=== PATIENT | male | born 1980 | race Caucasian/White ===

== ENCOUNTER 2020-05-04 11:10 | Observation (INO) | payer SELFPAY ==
[~2020-05-04 11:10] MED LIST: CEPH250T PO; KETO5DRO OP; PSEU120T50 PO; TOBR5DRO12 OP
[2020-05-04] MEDS ORDERED: NS IV 1000 ML 1,000 ML IV SCH (11:16)
[2020-05-04] MEDS ORDERED: ACETAMINOPHEN 325 MG TABLET PO PRN (11:30)
[2020-05-04] MEDS ORDERED: ANTACID SUSP 30 ML UDC (MYLANTA) PO PRN (11:30)
[2020-05-04] MEDS ORDERED: BISACODYL 10 MG SUPP (DULCOLAX) PR PRN (11:30)
[2020-05-04] MEDS ORDERED: ONDANSETRON 4 MG/2 ML (SDV) Z0FRAN IV PRN (11:30)
[2020-05-04] MEDS ORDERED: MILK OF MAGNESIA 400 MG/5 ML 30 ML UDC PO PRN (11:30)
[2020-05-04] MEDS ORDERED: MELATONIN 3 MG TABLET PO PRN (11:30)
[2020-05-04] MEDS ORDERED: polyethylene glycoL POWDER 17 GM (MIRALAX) PACK PO PRN (11:30)
[2020-05-04] MEDS ORDERED: CATHETER FLUSH 10 ML SYR IV PRN (12:45)
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
[2020-05-04 13:19] LABS: HEMOGLOBIN 14.2 g/dL (13.3-17.7); MEAN PLATELET VOLUME 10.7 fL (9.0-12.2); WHITE BLOOD COUNT 12.5 10^3/uL (4.3-11.0)
--- NOTE | 2020-05-04 13:25 | NUR ---
Patient personal financial representative light and stated he "has to leave" due to the news of his brother's . Dr. Mccoy and Dr. Monroe notified
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
--- NOTE | 2020-05-04 13:48 | Clinic Account Progress/Dx ---
Clinic Account Progress/Dx DIAGNOSIS: Date Seen by Provider: May 04, 2020 Time Seen by Provider: 13:00 Sinus bradycardia Gastroenteritis Peptic ulcer disease Tobaccoism RADHA TSANG MD May 04, 2020 1:48 pm
--- NOTE | 2020-05-04 17:12 | History & Physical-Hospitalist ---
History of Present Illness HPI/Chief Complaint Left ama before seen Source: RN/MD Exam Limitations: other (left AMA) Date Seen 05/04/20 Time Seen by a Provider: 13:00 Attending Physician [facility]ay [facility]cas[facility] Referring Physician Date of Admission May 04, 2020 at 12:32 Home Medications & Allergies Home Medications Reviewed patient Home Medication Reconciliation performed by pharmacy medication reconciliations device repair technician and/or nursing. Patients Allergies have been reviewed. Allergies Allergies Coded Allergies No Known Drug Allergies (Ftrfivgihm58/14/14) Past Qvdtuky-Nqerel-Cqrbsn Hx Past Med/Social Hx: Reviewed Nursing Past Med/Soc Hx, Reviewed and Corrections made Patient Social History Alcohol Use: Denies Use Recreational Drug Use: Yes Drug of Choice: THC, methamphetamine Smoking Status: Current Everyday Smoker Physical Abuse Screen: No Sexual Abuse: No Recent Foreign Travel: No Recent Hopitalizations: No Immunizations Up To Date Pediatric: No Seasonal Allergies Seasonal Allergies: No Past Medical History Gastrointestinal: Ulcer History of Blood Disorders: No Adverse Reaction to Blood Fiore: No Review of Systems Constitutional: see HPI Physical Exam Physical Exam Vital Signs Vital Signs - First Documented 05/04/20 05/04/20 12:36 12:55 Temp 36.5 O2 Delivery Room Air Capillary Refill : Height, Weight, BMI Height: 6'2" Weight: 214lbs. oz. 97.942524uu; BMI Method:Stated General Appearance: Other (Left ama before seen) Results Results/Procedures Labs Laboratory Tests 05/04/20 13:10 Patient resulted labs reviewed. Assessment/Plan Admission Diagnosis Left ama before seen Admission Status: Observation Clinical Quality Measures DVT/VTE Risk/Contraindication: Risk Factor Score Per Nursin RFS Level Per Nursing on Admit: 1=Low/No VTE PPX FLAKITA COONEY DO May 04, 2020 17:12
== END 2020-05-04 13:25 | disposition left against medical advice (07) ==
LOC: ICU 12:32 → UNDOADMIN 12:32 → ICU 12:36 → UNDODISIN 13:25 → EDSTATUS 14:41
PROVIDERS: ADMIT Family Medicine; ATTEND Family Medicine
DX: R00.1 Bradycardia, unspecified (principal); K52.9 Noninfective gastroenteritis and colitis, unspecified; K27.9 Peptic ulcer, site unspecified, unspecified as acute or chronic, without hemorrhage or perforation; F17.210 Nicotine dependence, cigarettes, uncomplicated
CPT/HCPCS: 36415; 85027

== ENCOUNTER 2022-12-29 13:47 | Observation (INO) | payer SELFPAY ==
[~2022-12-29] VITALS: Ht 187.9 cm; Wt 86.0 kg
--- NOTE | 2022-12-29 14:07 | ED GI ---
General Chief Complaint: Abdominal/GI Problems Stated Complaint: VOMITING BLOOD | Nursing Triage Note: ARRIVED VIA WC. STATES HE STARTED VOMITING YESTERDAY AND VOMITING BLOOD TODAY. TECH REPORTS A BUCKET IN CAR WITH APPX 400CC BLOOD IN IT. PT COMPLAINS OF ABD PAIN. ALSO STATES HE SMOKES POT AND ICE. Source of Information: Patient History of Present Illness Date Seen by Provider: Dec 29, 2022 Time Seen by Provider: 13:55 Initial Comments Patient is a 42-year-old male who presents to the emergency department with a chief complaint of vomiting blood for the last 12 to 18 hours. Patient states that he has a history of 2 prior episodes in the past that are similar. He states one episode 9 years ago and once in 2019. He states he has had colonoscopy (no upper endo). He does state he has a stomach ulcer however. He is supposed to be on a medication that he takes 30 minutes before eating as well as the nausea and an acid pill but has not been taking them. He does chew Tums and take Pepto every day. He denies any blood in his stool recently. He states the vomiting started last night the blood started sometime early this morning. Judy, the nutrition tech said that there was a bucket in the car when they removed him from the vehicle that contained approximately 400 cc of dark blackish blood. Patient denies daily alcohol use. He does smoke marijuana "when he has it". He is a cigarette smoker. No prior surgeries. No allergies to medications. He is lactose intolerant. He has upper abdominal discomfort currently with nausea. Timing/Duration: 12-24 Hours Severity/Quality: Severe, Cramping Location: Epigastric Radiation: No Radiation Activities at Onset: None Associated Symptoms: Nausea/Vomiting, Weakness Allergies and Home Medications Allergies Coded Allergies: No Known Drug Allergies (Unverified , 07/08/14) Patient Home Medication List Home Medication List Reviewed: Yes Cephalexin Monohydrate (Cephalexin) 250 Mg Tablet, 2 EACH PO Q8HR Prescribed by: DWAYNE ABBOTT on 07/08/14 1438 Ketorolac Tromethamine (Acular) 10 Ml Drops, 1 DROPS OP BID Prescribed by: DWAYNE ABBOTT on 07/08/14 1438 Pseudoephedrine Sulfate (12 Hour Cold Relief) 120 Mg Tablet.sa, 1 EA PO BID PRN Prescribed by: DWAYNE ABBOTT on 07/08/14 1438 Tobramycin Sulfate/Dexameth (Tobramycin-Dexameth Opth Susp) 5 Ml Drops.susp, 5 ML OP BID, (Reported) Entered as Reported by: RAMU DESOUZA on 07/08/14 1435 Review of Systems Review of Systems Constitutional: see HPI, malaise, weakness EENTM: No Symptoms Reported Respiratory: No Symptoms Reported Cardiovascular: No Symptoms Reported Gastrointestinal: Abdominal Pain, Nausea, Vomiting Genitourinary: No Symptoms Reported Musculoskeletal: no symptoms reported Skin: no symptoms reported All Other Systems Reviewed Negative Unless Noted: Yes Past Xoxlvvw-Nnbslq-Zdyunv Hx Patient Social History Tobacco Use?: Yes Substance use?: Yes Substance type: Marijuana Additional substance use comme: ICE Alcohol Use?: Yes Alcohol Frequency: Once in a while Immunizations Up To Date PED Vaccines UTD: No Seasonal Allergies Seasonal Allergies: No Past Medical History Surgeries: No Respiratory: No Cardiac: No Neurological: No Genitourinary: No Gastrointestinal: Yes Ulcer Musculoskeletal: No Endocrine: No HEENT: No Cancer: No Psychosocial: No Integumentary: No Blood Disorders: No Adverse Reaction/Blood Tranf: No Physical Exam Vital Signs Vital Signs - First Documented 12/29/22 13:50 Temp 36.1 Pulse 46 Resp 16 B/P (MAP) 146/89 (108) Pulse Ox 100 O2 Delivery Room Air Capillary Refill : Less Than 3 Seconds Height/Weight/BMI Height: 6'2" Weight: 214lbs. oz. 97.169256kl; 24.00 BMI Method:Stated General Appearance: WD/WN, no apparent distress HEENT: PERRL/EOMI, other (Very dry oral mucosa with blackish red material on the tongue) Neck: supple Respiratory: lungs clear, normal breath sounds, no respiratory distress, no acc essory muscle use Cardiovascular: bradycardia (50's) Gastrointestinal: soft, abnormal bowel sounds (Hypoactive bowel sounds); No distended, No guarding, No rebound; tenderness (Minimal epigastric tenderness) Extremities: normal range of motion, normal inspection, no pedal edema Skin: normal color, warm/dry Progress/Results/Core Measures Results/Orders Lab Results Laboratory Tests Test 12/29/22 13:54 12/29/22 15:07 Range/Units White Blood Count 12.8 H 4.3-11.0 10^3/uL Red Blood Count 5.18 4.30-5.52 10^6/uL Hemoglobin 15.0 13.3-17.7 g/dL Hematocrit 43 40-54 % Mean Corpuscular Volume 83 80-99 fL Mean Corpuscular Hemoglobin 29 25-34 pg Mean Corpuscular Hemoglobin Concent 35 32-36 g/dL Red Cell Distribution Width 13.6 10.0-14.5 % Platelet Count 297 130-400 10^3/uL Mean Platelet Volume 10.5 9.0-12.2 fL Immature Granulocyte % (Auto) 0 % Neutrophils (%) (Auto) 77 H 42-75 % Lymphocytes (%) (Auto) 18 12-44 % Monocytes (%) (Auto) 5 0-12 % Eosinophils (%) (Auto) 0 0-10 % Basophils (%) (Auto) 0 0-10 % Neutrophils # (Auto) 9.9 H 1.8-7.8 10^3/uL Lymphocytes # (Auto) 2.2 1.0-4.0 10^3/uL Monocytes # (Auto) 0.6 0.0-1.0 10^3/uL Eosinophils # (Auto) 0.0 0.0-0.3 10^3/uL Basophils # (Auto) 0.0 0.0-0.1 10^3/uL Immature Granulocyte # (Auto) 0.0 0.0-0.1 10^3/uL Prothrombin Time 13.3 12.2-14.7 SEC INR Comment 1.0 0.8-1.4 Activated Partial Thromboplast Time 24 24-35 SEC Sodium Level 137 135-145 MMOL/L Potassium Level 3.7 3.6-5.0 MMOL/L Chloride Level 103 98-107 MMOL/L Carbon Dioxide Level 22 21-32 MMOL/L Anion Gap 12 5-14 MMOL/L Blood Urea Nitrogen 15 7-18 MG/DL Creatinine 0.87 0.60-1.30 MG/DL Estimat Glomerular Filtration Rate 110 BUN/Creatinine Ratio 17 Glucose Level 133 H 70-105 MG/DL Calcium Level 9.5 8.5-10.1 MG/DL Corrected Calcium 9.3 8.5-10.1 MG/DL Total Bilirubin 0.8 0.1-1.0 MG/DL Aspartate Amino Transf (AST/SGOT) 25 5-34 U/L Alanine Aminotransferase (ALT/SGPT) 33 0-55 U/L Alkaline Phosphatase 52 40-136 U/L Total Protein 7.4 6.4-8.2 GM/DL Albumin 4.3 3.2-4.5 GM/DL Serum Alcohol < 10 <10 MG/DL Urine Opiates Screen NEGATIVE NEGATIVE Urine Oxycodone Screen NEGATIVE NEGATIVE Urine Methadone Screen NEGATIVE NEGATIVE Urine Propoxyphene Screen NEGATIVE NEGATIVE Urine Barbiturates Screen POSITIVE H NEGATIVE Ur Tricyclic Antidepressants Screen NEGATIVE NEGATIVE Urine Phencyclidine Screen NEGATIVE NEGATIVE Urine Amphetamines Screen NEGATIVE NEGATIVE Urine Methamphetamines Screen NEGATIVE NEGATIVE Urine Benzodiazepines Screen NEGATIVE NEGATIVE Urine Cocaine Screen NEGATIVE NEGATIVE Urine Cannabinoids Screen POSITIVE H NEGATIVE My Orders Orders - JESSICA BARRAGAN MD Ekg Tracing (12/29/22 13:57) Ed Iv/Invasive Line Start (12/29/22 14:01) Cbc With Automated Diff (12/29/22 14:01) Comprehensive Metabolic Panel (12/29/22 14:01) Protime With Inr (12/29/22 14:01) Partial Thromboplastin Time (12/29/22 14:01) Alcohol (12/29/22 14:01) Drug Screen Stat (Urine) (12/29/22 14:01) Pantoprazole Injection (Protonix Injecti (12/29/22 14:15) Ns (Ivpb) (Sodium C... W/Pantoprazole In (12/29/22 14:15) Ondansetron Injection (Zofran Injectio (12/29/22 14:15) Lactated Ringers (Lr 1000 Ml Iv Solution (12/29/22 14:15) Ed Admission (Communication) (12/29/22 16:21) Medications Given in ED Vital Signs/I&O 12/29/22 13:50 Temp 36.1 Pulse 46 Resp 16 B/P (MAP) 146/89 (108) Pulse Ox 100 O2 Delivery Room Air 12/30/22 00:00 Intake Total 1000 ml Balance 1000 ml Blood Pressure Mean: 108 Admisison Planning May Need Admission (Planning): 14:07 Initial ECG Impression Date: Dec 29, 2022 Initial ECG Impression Time: 13:55 Initial ECG Rate: 47 Initial ECG Rhythm: S.Samy Comment Variable HI interval, normal QRS duration, normal QTc. No ST segment elevation or depression, bradycardia Departure Communication (Admissions) Time/Spoke to Admitting Phy: 16:[address] Dinh ([facility] Hospitalist); accepts obs admission to medical Time/Spoke to Consulting Phy: 16:[address] Agee (gen Surg) NPO after mn, will see in am Impression Primary Impression: Hematemesis Qualified Codes: K92.0 - Hematemesis Additional Impression: Tobacco dependence Disposition: ADMITTED INPATIENT Condition: Stable Admissions Decision to Admit Reason: Admit from ER (General) Decision to Admit/Date: Dec 29, 2022 Time/Decision to Admit Time: 16:18 Departure-Patient Inst. Referrals: [facility] (PCP/Family) Primary Care Physician Copy Copies To 1: DON BAKER KATHRYN M MD Dec 29, 2022 14:07
[2022-12-29 14:09] LABS: BASOPHILS % (AUTO) 0 % (0-10); EOSINOPHILS % (AUTO) 0 % (0-10); HEMATOCRIT 43 % (40-54); LYMPHOCYTES # (AUTO) 2.2 10^3/uL (1.0-4.0); LYMPHOCYTES % (AUTO) 18 % (12-44); MEAN CORPUSCULAR HEMOGLOBIN 29 pg (25-34); MEAN CORPUSCULAR HGB CONC 35 g/dL (32-36); MEAN CORPUSCULAR VOLUME 83 fL (80-99); MEAN PLATELET VOLUME 10.5 fL (9.0-12.2); MONOCYTES # (AUTO) 0.6 10^3/uL (0.0-1.0); MONOCYTES % (AUTO) 5 % (0-12); NEUTROPHILS # (AUTO) 9.9 10^3/uL (1.8-7.8); NEUTROPHILS % (AUTO) 77 % (42-75); PLATELET COUNT 297 10^3/uL (130-400); WHITE BLOOD COUNT 12.8 10^3/uL (4.3-11.0)
[2022-12-29 14:12] LABS: ALBUMIN 4.3 GM/DL (3.2-4.5); CHLORIDE 103 MMOL/L (98-107); POTASSIUM 3.7 MMOL/L (3.6-5.0); SODIUM 137 MMOL/L (135-145)
[2022-12-29 14:13] LABS: CALCIUM 9.5 MG/DL (8.5-10.1)
[2022-12-29 14:15] LABS: GLUCOSE 133 MG/DL (70-105); PROTHROMBIN TIME PATIENT 13.3 SEC (12.2-14.7); TOTAL PROTEIN 7.4 GM/DL (6.4-8.2)
[2022-12-29] MEDS ORDERED: PANTOPRAZOLE 40 MG (PROTONIX) VIAL IV ONE (14:15)
[2022-12-29] MEDS ORDERED: ONDANSETRON 4 MG/2 ML (SDV) Z0FRAN IVP ONE (14:15)
[2022-12-29] MEDS ORDERED: LACTATED RINGERS 1,000 ML IV SCH (14:15)
[2022-12-29] MEDS ORDERED: PANTOPRAZOLE INJECTION 200 MG in NS (IVPB) 100 ML IV SCH (14:15)
[2022-12-29 14:16] LABS: BILIRUBIN,TOTAL 0.8 MG/DL (0.1-1.0); CARBON DIOXIDE 22 MMOL/L (21-32)
[2022-12-29 14:18] LABS: ALKALINE PHOSPHATASE 52 U/L (40-136); CREATININE SERUM 0.87 MG/DL (0.60-1.30); GFR ESTIMATED 110
[2022-12-29 14:19] LABS: BUN/CREATININE RATIO 17
[2022-12-29 14:21] LABS: ALANINE AMINOTRANSFERASE 33 U/L (0-55)
[2022-12-29 15:29] LABS: AMPHETAMINE SCREEN, URINE NEGATIVE (NEGATIVE); BARBITURATE SCREEN URINE POSITIVE (NEGATIVE); BENZODIAZEPINES SCREEN URINE NEGATIVE (NEGATIVE); CANNABINOID SCREEN, URINE POSITIVE (NEGATIVE); COCAINE SCREEN URINE NEGATIVE (NEGATIVE); METHADONE STAT NEGATIVE (NEGATIVE); OPIATE SCREEN URINE NEGATIVE (NEGATIVE); OXYCODONE STAT NEGATIVE (NEGATIVE); PROPOXYPHENE STAT NEGATIVE (NEGATIVE); TRICYCLIC ANTIDEPRESSANTS SCRE NEGATIVE (NEGATIVE)
[2022-12-29] MEDS: NS IV 1000 ML 1,000 ML IV SCH (17:31)
[2022-12-29 19:50] VITALS: BP 97/60
[2022-12-29] MEDS: PANTOPRAZOLE 40 MG (PROTONIX) VIAL IV SCH (21:47)
[2022-12-30 00:16] VITALS: BP 100/57
[2022-12-30] MEDS: NS IV 1000 ML 1,000 ML IV SCH ×2 (02:58→13:19)
[2022-12-30 03:47] VITALS: BP_SYST 86; BP_SYST 93; BP_DIAS 50
[2022-12-30 05:31] LABS: BASOPHILS # (AUTO) 0.1 10^3/uL (0.0-0.1); BASOPHILS % (AUTO) 1 % (0-10); EOSINOPHILS # (AUTO) 0.1 10^3/uL (0.0-0.3); EOSINOPHILS % (AUTO) 1 % (0-10); HEMATOCRIT 40 % (40-54); LYMPHOCYTES # (AUTO) 2.9 10^3/uL (1.0-4.0); LYMPHOCYTES % (AUTO) 33 % (12-44); MEAN CORPUSCULAR HEMOGLOBIN 28 pg (25-34); MEAN CORPUSCULAR HGB CONC 33 g/dL (32-36); MEAN CORPUSCULAR VOLUME 85 fL (80-99); MEAN PLATELET VOLUME 10.4 fL (9.0-12.2); MONOCYTES # (AUTO) 0.7 10^3/uL (0.0-1.0); MONOCYTES % (AUTO) 8 % (0-12); NEUTROPHILS # (AUTO) 5.2 10^3/uL (1.8-7.8); NEUTROPHILS % (AUTO) 58 % (42-75); PLATELET COUNT 238 10^3/uL (130-400)
[2022-12-30 05:51] LABS: ALBUMIN 3.4 GM/DL (3.2-4.5); BILIRUBIN,TOTAL 0.6 MG/DL (0.1-1.0); CALCIUM 8.3 MG/DL (8.5-10.1); CREATININE SERUM 0.86 MG/DL (0.60-1.30); POTASSIUM 3.7 MMOL/L (3.6-5.0); TOTAL PROTEIN 5.8 GM/DL (6.4-8.2)
[2022-12-30 08:03] VITALS: BP 120/73
[2022-12-30] MEDS: PANTOPRAZOLE 40 MG (PROTONIX) VIAL IV SCH (09:01)
[2022-12-30] MEDS ORDERED: IBUP-2473 PO (09:53)
[2022-12-30] MEDS ORDERED: CALC10009 PO (09:53)
[2022-12-30] MEDS ORDERED: ACET-2267 PO (09:53)
[2022-12-30] MEDS ORDERED: BISM525O18 PO (09:53)
[2022-12-30 12:21] VITALS: BP 112/67
--- NOTE | 2022-12-30 13:27 | Consultation - Surgery ---
History of Present Illness History of Present Illness Patient Consulted On(maria del rosario/time) 12/30/22 13:18 Time Seen by Provider: 09:27 History of Present Illness Surgery asked to consult regarding Hematemesis. HPI per ED: Patient is a 42-year-old male who presents to the emergency department with a chief complaint of vomiting blood for the last 12 to 18 hours. Patient states that he has a history of 2 prior episodes in the past that are similar. He states one episode 9 years ago and once in 2019. He states he has had colonoscopy (no upper endo). He does state he has a stomach ulcer however. He is supposed to be on a medication that he takes 30 minutes before eating as well as the nausea and an acid pill but has not been taking them. He does chew Tums and take Pepto every day. He denies any blood in his stool recently. He states the vomiting started last night the blood started sometime early this morning. Judy, the ekg tech said that there was a bucket in the car when they removed him from the vehicle that contained approximately 400 cc of dark blackish blood. Patient denies daily alcohol use. He does smoke marijuana "when he has it". He is a cigarette smoker. No prior surgeries. No allergies to medications. He is lactose intolerant. He has upper abdominal discomfort currently with nausea. When I saw pt he was lying in his bed and appeared comfortable. He denied any more vomiting since he had been admitted and no abdominal pain. He stated he was hungry. He is not sure whether he had previous EGD, "they didn't show me any pictures". Allergies and Home Medications Allergies Coded Allergies: No Known Drug Allergies (Unverified , 07/08/14) Patient Home Medication List Home Medication List Reviewed: Yes Acetaminophen (Tylenol Extra Strength) 500 Mg Tablet, 1,000 MG PO Q8H PRN for PAIN-MILD (1-4), (Reported) Entered as Reported by: MOY MOSER on 12/30/22952 Last Action: Reviewed Bismuth Subsalicylate (Pepto-Bismol) 525 Mg/15 Ml Oral.susp, 30 ML PO Q6H PRN for INDIGESTION, (Reported) Entered as Reported by: MOY MOSER on 12/30/2223 Last Action: Reviewed Calcium Carbonate (Tums Ultra) 400 Mg Calcium (1000 Mg) Tab.chew, 400-800 MG PO Q8H PRN for INDIGESTION, (Reported) Entered as Reported by: MOY MOSER on 12/30/22952 Last Action: Reviewed Ibuprofen (Ibuprofen) 200 Mg Tablet, 400 MG PO Q8H PRN for PAIN-MILD (1-4), (Reported) Entered as Reported by: MOY MOSER on 12/30/22952 Last Action: Reviewed Discontinued Medications Cephalexin Monohydrate (Cephalexin) 250 Mg Tablet, 2 EACH PO Q8HR Discontinued Reason: No Longer Taking Prescribed by: DWAYNE ABBOTT on 07/08/141437 Last Action: Discontinued Ketorolac Tromethamine (Acular) 10 Ml Drops, 1 DROPS OP BID Discontinued Reason: No Longer Taking Prescribed by: DWAYNE ABBOTT on 07/08/141437 Last Action: Discontinued Pseudoephedrine Sulfate (12 Hour Cold Relief) 120 Mg Tablet.sa, 1 EA PO BID PRN Discontinued Reason: No Longer Taking Prescribed by: DWAYNE ABBOTT on 07/08/141437 Last Action: Discontinued Tobramycin Sulfate/Dexameth (Tobramycin-Dexameth Opth Susp) 5 Ml Drops.susp, 5 ML OP BID, (Reported) Discontinued Reason: No Longer Taking Entered as Reported by: RAMU DESOUZA on 07/08/141434 Last Action: Discontinued Past Vbypfbl-Uopstl-Nczgmb Hx Patient Social History Drug of Choice: THC, methamphetamine Smoking Status: Current Everyday Smoker Recent Hopitalizations: No Alcohol Use?: No Substance type: Methamphetamine, Barbiturates, Marijuana Immunizations Up To Date PED Vaccines UTD: No Seasonal Allergies Seasonal Allergies: No Surgeries History of Surgeries: No Respiratory History of Respiratory Disorde: No Cardiovascular History of Cardiac Disorders: No Neurological History of Neurological Disord: No Genitourinary History of Genitourinary Disor: No Gastrointestinal History of Gastrointestinal Di: Yes Gastrointestinal Disorders: Ulcer Musculoskeletal History of Musculoskeletal Dis: No Endocrine History of Endocrine Disorders: No HEENT History of HEENT Disorders: No Cancer History of Cancer: No Psychosocial History of Psychiatric Problem: No Integumentary History of Skin or Integumenta: No Blood Transfusions History of Blood Disorders: No Adverse Reaction to a Blood Tr: No Family Medical History Significant Family History: Heart Disease, Diabetes Review of Systems-General Constitutional: No diaphoresis; malaise EENTM: No blurred vision, No hoarseness, No mouth swelling Respiratory: No cough, No dyspnea on exertion Cardiovascular: No palpitations Gastrointestinal: No abdominal pain, No jaundice; nausea, vomiting Genitourinary: No dysuria, No frequency, No hematuria Musculoskeletal: No back pain, No joint pain Skin: No change in color, No change in hair/nails Psychiatric/Neurological: Denies Anxiety, Denies Depressed, Denies Seizure Physical Exam-General Problems Physical Exam Vital Signs Vital Signs - First Documented 12/29/22 12/29/22 13:50 19:50 Temp 36.1 Pulse 46 Resp 16 B/P (MAP) 146/89 (108) Pulse Ox 100 O2 Delivery Room Air O2 Flow Rate 0.00 Capillary Refill : Less Than 3 Seconds General Appearance: WD/WN, no apparent distress Eyes: Bilateral Eye PERRL, Bilateral Eye EOMI HEENT: pharynx normal; No scleral icterus (R), No scleral icterus (L) Neck: non-tender, supple Respiratory: lungs clear, normal breath sounds, no respiratory distress, no accessory muscle use Cardiovascular: no murmur, bradycardia Gastrointestinal: non tender, soft, no organomegaly Back: no CVA tenderness, no vertebral tenderness Extremities: no pedal edema, no calf tenderness, normal capillary refill Neurologic/Psychiatric: sql programmer analyst II-XII nml as tested, alert, oriented x 3 Skin: normal color, warm/dry Lymphatic: no adenopathy (neck, axilla or groin) Data Review Labs Laboratory Tests 12/29/22 13:54: White Blood Count 12.8H, Red Blood Count 5.18, Hemoglobin 15.0, Hematocrit 43, Mean Corpuscular Volume 83, Mean Corpuscular Hemoglobin 29, Mean Corpuscular Hemoglobin Concent 35, Red Cell Distribution Width 13.6, Platelet Count 297, Mean Platelet Volume 10.5, Immature Granulocyte % (Auto) 0, Neutrophils (%) (Auto) 77H, Lymphocytes (%) (Auto) 18, Monocytes (%) (Auto) 5, Eosinophils (%) (Auto) 0, Basophils (%) (Auto) 0, Neutrophils # (Auto) 9.9H, Lymphocytes # (Auto) 2.2, Monocytes # (Auto) 0.6, Eosinophils # (Auto) 0.0, Basophils # (Auto) 0.0, Immature Granulocyte # (Auto) 0.0, Prothrombin Time 13.3, INR Comment 1.0, Activated Partial Thromboplast Time 24, Sodium Level 137, Potassium Level 3.7, Chloride Level 103, Carbon Dioxide Level 22, Anion Gap 12, Blood Urea Nitrogen 15, Creatinine 0.87, Estimat Glomerular Filtration Rate 110, BUN/Creatinine Ratio 17, Glucose Level 133H, Calcium Level 9.5, Corrected Calcium 9.3, Total Bilirubin 0.8, Aspartate Amino Transf (AST/SGOT) 25, Alanine Aminotransferase (ALT/SGPT) 33, Alkaline Phosphatase 52, Total Protein 7.4, Albumin 4.3, Serum Alcohol < 10 12/29/22 15:07: Urine Opiates Screen NEGATIVE, Urine Oxycodone Screen NEGATIVE, Urine Methadone Screen NEGATIVE, Urine Propoxyphene Screen NEGATIVE, Urine Barbiturates Screen POSITIVEH, Ur Tricyclic Antidepressants Screen NEGATIVE, Urine Phencyclidine Screen NEGATIVE, Urine Amphetamines Screen NEGATIVE, Urine Methamphetamines Screen NEGATIVE, Urine Benzodiazepines Screen NEGATIVE, Urine Cocaine Screen NEGATIVE, Urine Cannabinoids Screen POSITIVEH 12/30/22 05:19: Glucometer 96 12/30/22 05:20: White Blood Count 9.0, Red Blood Count 4.64, Hemoglobin 13.0L, Hematocrit 40, Mean Corpuscular Volume 85, Mean Corpuscular Hemoglobin 28, Mean Corpuscular Hemoglobin Concent 33, Red Cell Distribution Width 13.9, Platelet Count 238, Mean Platelet Volume 10.4, Immature Granulocyte % (Auto) 0, Neutrophils (%) (Auto) 58, Lymphocytes (%) (Auto) 33, Monocytes (%) (Auto) 8, Eosinophils (%) (Auto) 1, Basophils (%) (Auto) 1, Neutrophils # (Auto) 5.2, Lymphocytes # (Auto) 2.9, Monocytes # (Auto) 0.7, Eosinophils # (Auto) 0.1, Basophils # (Auto) 0.1, Immature Granulocyte # (Auto) 0.0, Sodium Level 139, Potassium Level 3.7, Chloride Level 109H, Carbon Dioxide Level 23, Anion Gap 7, Blood Urea Nitrogen 11, Creatinine 0.86, Estimat Glomerular Filtration Rate 111, BUN/Creatinine Ratio 13, Glucose Level 103, Calcium Level 8.3L, Corrected Calcium 8.8, Total Bilirubin 0.6, Aspartate Amino Transf (AST/SGOT) 19, Alanine Aminotransferase (ALT/SGPT) 23, Alkaline Phosphatase 42, Total Protein 5.8L, Albumin 3.4 12/30/22 12:24: Glucometer 94 Assessment/Plan Assessment/Plan Assessment/Plan Hematemesis Upper GI bleed Pt hemoglobin dropped from 15 to 13, but still in normal range and he has not had any more episodes of Hematemesis. I recommend allowing pt to eat and doing an EGD as an outpt. Pt is in agreement and he can f/u in my office in a week. AFSHIN CORNEJO DO Dec 30, 2022 13:27
[2022-12-30 15:37] VITALS: BP 117/67
--- NOTE | 2022-12-30 15:55 | Short Stay Summary ---
HPI History of Present Illness: 42 yo M that presented to ER with bloody emesis. Patient states that it has been happening since yesterday AM. Denies eating anything outside his normal. States that he has had 2 prior episodes of hematemesis but unsure whether he has had an upper scope. States he does take Motrin but has not taken any recently. Denies any abdominal pain. He has not had any further hematemesis since arriving up to the floor. Source: patient Exam Limitations: no limitations Date seen by provider: Dec 30, 2022 Time Seen by Provider: 10:45 Attending Physician Bernard Morales - [facility] PCP Admitting Physician: Karina Dinh MD Attending Physician: Karina Dinh MD Consult Date of Admission Dec 29, 2022 at 16:35 Home Medications Home Medications Reviewed patient Home Medication Reconciliation performed by pharmacy medication reconciliations reprographics technician and/or nursing. Patients Allergies have been reviewed. Allergies Coded Allergies: No Known Drug Allergies (Unverified , 07/08/14) ZLP-Lnyoll-Ypkhav Hx Patient Social History Drug of Choice: THC, methamphetamine Smoking Status: Current Everyday Smoker Recent Hopitalizations: No Alcohol Use?: No Substance type: Methamphetamine, Barbiturates, Marijuana Tobacco type used: Cigarettes Family Medical History Significant Family History: Heart Disease, Diabetes Review of Systems ([facility]) Constitutional: No chills, No fever, No malaise, No weakness EENTM: throat pain; No mouth pain, No nose pain Respiratory: no symptoms reported; No cough, No dyspnea on exertion, No short of breath Cardiovascular: no symptoms reported; No chest pain, No edema, No palpitations Gastrointestinal: abdominal pain; No constipation, No diarrhea; hematemesis (none since admission); No loss of appetite, No nausea, No vomiting Genitourinary: no symptoms reported; No dysuria, No frequency, No hematuria Musculoskeletal: no symptoms reported; No back pain, No joint pain, No muscle pain Skin: no symptoms reported Psychiatric/Neurological: No Symptoms Reported Reviewed Test Results Reviewed Test Results Lab Laboratory Tests Test 12/30/22 05:19 12/30/22 05:20 12/30/22 12:24 Range/Units Glucometer 96 94 70-110 MG/DL White Blood Count 9.0 4.3-11.0 10^3/uL Red Blood Count 4.64 4.30-5.52 10^6/uL Hemoglobin 13.0 L 13.3-17.7 g/dL Hematocrit 40 40-54 % Mean Corpuscular Volume 85 80-99 fL Mean Corpuscular Hemoglobin 28 25-34 pg Mean Corpuscular Hemoglobin Concent 33 32-36 g/dL Red Cell Distribution Width 13.9 10.0-14.5 % Platelet Count 238 130-400 10^3/uL Mean Platelet Volume 10.4 9.0-12.2 fL Immature Granulocyte % (Auto) 0 % Neutrophils (%) (Auto) 58 42-75 % Lymphocytes (%) (Auto) 33 12-44 % Monocytes (%) (Auto) 8 0-12 % Eosinophils (%) (Auto) 1 0-10 % Basophils (%) (Auto) 1 0-10 % Neutrophils # (Auto) 5.2 1.8-7.8 10^3/uL Lymphocytes # (Auto) 2.9 1.0-4.0 10^3/uL Monocytes # (Auto) 0.7 0.0-1.0 10^3/uL Eosinophils # (Auto) 0.1 0.0-0.3 10^3/uL Basophils # (Auto) 0.1 0.0-0.1 10^3/uL Immature Granulocyte # (Auto) 0.0 0.0-0.1 10^3/uL Sodium Level 139 135-145 MMOL/L Potassium Level 3.7 3.6-5.0 MMOL/L Chloride Level 109 H 98-107 MMOL/L Carbon Dioxide Level 23 21-32 MMOL/L Anion Gap 7 5-14 MMOL/L Blood Urea Nitrogen 11 7-18 MG/DL Creatinine 0.86 0.60-1.30 MG/DL Estimat Glomerular Filtration Rate 111 BUN/Creatinine Ratio 13 Glucose Level 103 70-105 MG/DL Calcium Level 8.3 L 8.5-10.1 MG/DL Corrected Calcium 8.8 8.5-10.1 MG/DL Total Bilirubin 0.6 0.1-1.0 MG/DL Aspartate Amino Transf (AST/SGOT) 19 5-34 U/L Alanine Aminotransferase (ALT/SGPT) 23 0-55 U/L Alkaline Phosphatase 42 40-136 U/L Total Protein 5.8 L 6.4-8.2 GM/DL Albumin 3.4 3.2-4.5 GM/DL Physical Exam-([facility]) Physical Exam Vital Signs VS - Last 72 Hours, by Label 12/29/22 12/29/22 12/29/22 12/29/22 13:50 16:36 18:32 19:50 Temp 36.1 37.1 Pulse 46 54 81 Resp 16 20 18 B/P (MAP) 146/89 (108) 135/81 97/60 (72) Pulse Ox 100 98 97 O2 Delivery Room Air Room Air Room Air Room Air O2 Flow Rate 0.00 12/29/22 12/30/22 12/30/22 12/30/22 20:30 00:16 03:47 08:00 Temp 36.3 36.3 Pulse 57 55 Resp 18 20 B/P (MAP) 100/57 (71) 93/50 (64) Pulse Ox 98 96 98 O2 Delivery Room Air Room Air Room Air Room Air 12/30/22 12/30/22 12/30/22 08:03 12:21 15:37 Temp 36.2 36.3 37.0 Pulse 58 76 67 Resp 16 16 18 B/P (MAP) 120/73 (89) 112/67 (82) 117/67 (84) Pulse Ox 93 96 97 O2 Delivery Room Air Room Air Room Air Capillary Refill : Less Than 3 Seconds General Appearance: WD/WN, no apparent distress HEENT: PERRL/EOMI Neck: non-tender, supple Respiratory: chest non-tender, lungs clear, normal breath sounds, no respiratory distress, no accessory muscle use Cardiovascular: normal peripheral pulses, regular rate, rhythm, no edema, no murmur Gastrointestinal: non tender, soft; No guarding, No rebound, No tenderness Back: no CVA tenderness, no vertebral tenderness Extremities: normal range of motion, non-tender, normal inspection, no pedal edema, no calf tenderness, normal capillary refill Neurologic/Psychiatric: manager subway II-XII nml as tested, alert, oriented x 3 Skin: normal color, warm/dry Lymphatic: no adenopathy Short Stay Diagnosis Discharge Diagnosis-Short Stay Admission Diagnosis See problem list Final Discharge Diagnosis See problem list Conclusion Plan See problem list Assessment/Plan Assessment/Plan Admission Status: Observation (1) Hematemesis Status: Acute Assessment & Plan: -General surgery consulted and appreciate recommendations, Plan to do EGD as outpatient, Will start PPI in the meantime, HDS, as long as patient tolerates diet will d.c home today Qualifiers: Qualified Codes: K92.0 - Hematemesis (2) Upper GI bleed Status: Acute KARINA DINH MD Dec 30, 2022 15:55
[2022-12-30] MEDS ORDERED: PANT40TA2 PO (16:02)
--- NOTE | 2022-12-30 16:02 | Discharge Summary ---
Discharge [facility] Reconcile Patient Problems Problems Reviewed?: Yes Discharge Medications New, Converted or Re-Newed RX: Transmitted to Pharmacy New Medications: Pantoprazole Sodium (Protonix) 40 Mg Tablet.dr 40 MG PO DAILY for 14 Days, #14 TAB Continued Medications: Acetaminophen (Tylenol Extra Strength) 500 Mg Tablet 1000 MG PO Q8H PRN for PAIN-MILD (1-4), TAB Bismuth Subsalicylate (Pepto-Bismol) 525 Mg/15 Ml Oral.susp 30 ML PO Q6H PRN for INDIGESTION, ML Calcium Carbonate (Tums Ultra) 400 Mg Calcium (1000 Mg) Tab.chew 400-800 MG PO Q8H PRN for INDIGESTION, TAB Discontinued Medications: Ibuprofen (Ibuprofen) 200 Mg Tablet 400 MG PO Q8H PRN for PAIN-MILD (1-4), TAB Patient Instructions Goal/Follow Up Appt: Will have a [address] Agee Activity & Diet Discharge Diet: Soft Diet KARINA CLEMENS MD Dec 30, 2022 16:02
== END 2022-12-30 18:39 | disposition home or self-care (01) ==
LOC: EDUNIT# 13:47 → ER 13:51 → UNDOADMOB 16:35 → 4TH 16:35 → UNDODISOB 12-30 18:39
PROVIDERS: ADMIT Family Medicine; ATTEND Family Medicine
DX: K92.0 Hematemesis (principal); F17.210 Nicotine dependence, cigarettes, uncomplicated; F12.90 Cannabis use, unspecified, uncomplicated; F15.90 Other stimulant use, unspecified, uncomplicated; F19.90 Other psychoactive substance use, unspecified, uncomplicated; Z79.1 Long term (current) use of non-steroidal anti-inflammatories (NSAID); Z79.899 Other long term (current) drug therapy
CPT/HCPCS: 80053 ×2; 80306; 82947; 85025 ×2; 85610; 85730; 93005; 96361 ×2; 96376 ×2; 99284; G0378; G0480; 36415; 80320

== ENCOUNTER 2023-01-13 06:41 | Outpatient (CLI) | payer SELFPAY ==
[~2023-01-13] VITALS: Ht 188 cm; Wt 88.0 kg
[~2023-01-13 06:41] MED LIST changes: +ACET-2267 PO; +BISM525O18 PO; +CALC10009 PO; +IBUP-2473 PO; +PANT40TA2 PO
== END 2023-01-14 08:04 | disposition home or self-care (01) ==
LOC: PREOP 06:41
PROVIDERS: ATTEND Surgery
DX: Z01.818 Encounter for other preprocedural examination (principal)

== ENCOUNTER 2023-01-15 16:26 | Emergency (ER) | payer OTHER ==
[~2023-01-15] VITALS: Ht 187 cm; Wt 88.0 kg
[2023-01-15 16:56] LABS: BASOPHILS # (AUTO) 0.1 10^3/uL (0.0-0.1); BASOPHILS % (AUTO) 1 % (0-10); EOSINOPHILS # (AUTO) 0.1 10^3/uL (0.0-0.3); EOSINOPHILS % (AUTO) 2 % (0-10); HEMATOCRIT 45 % (40-54); LYMPHOCYTES # (AUTO) 2.7 10^3/uL (1.0-4.0); LYMPHOCYTES % (AUTO) 31 % (12-44); MEAN CORPUSCULAR HEMOGLOBIN 29 pg (25-34); MEAN CORPUSCULAR HGB CONC 34 g/dL (32-36); MEAN CORPUSCULAR VOLUME 85 fL (80-99); MEAN PLATELET VOLUME 9.8 fL (9.0-12.2); MONOCYTES # (AUTO) 0.8 10^3/uL (0.0-1.0); MONOCYTES % (AUTO) 9 % (0-12); NEUTROPHILS % (AUTO) 57 % (42-75); PLATELET COUNT 297 10^3/uL (130-400); WHITE BLOOD COUNT 8.7 10^3/uL (4.3-11.0)
--- NOTE | 2023-01-15 16:56 | ED Syncope ---
General Chief Complaint: Dizziness/Syncope Stated Complaint: VISION CHANGE/BLURRY Nursing Triage Note: PT TO RM 7 PER W/C STATES HAD SYNCOPAL EPISODE WHILE AT WORK TODAY, STATES VISION WAS BLACK AND THEN BLURRY. PT CO OF HEAD SPINNING Source of Information: Patient History of Present Illness Date Seen by Provider: Jan 15, 2023 Time Seen by Provider: 16:51 Initial Comments Patient Is a 42-year-old male who presents to ED for a syncopal episode 1 hour ago. States he was at work at the time. 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 Denies falling or loss of consciousness. Coworkers put him next to a AC unit. Patient states immediately after he noted odd colors shapes in his vision. This lasted for several seconds and then resolved. Reports blurry vision bilateral describes as more as a haziness. Patient states he was having difficulty walking. Report weakness bilateral lower extremity. Patient states he is having difficulty focusing on near objects. Patient reports a spinning sensation to the top part of his head. Denies of any headache. He denies of any visual loss. Denies of any facial droop, slurred speech or unilateral weakness or sensory changes. He had no prior chest pain or currently. Denies any shortness of breath. Denies history of coronary artery disease, COPD. Patient reports marijuana use daily. Patient denies any recent upper respiratory infection. Denies recent travels or surgeries. Denies history of diabetes. Patient smokes half a pack a day. Allergies and Home Medications Allergies Coded Allergies: No Known Drug Allergies (Unverified , 07/08/14) Patient Home Medication List Pantoprazole Sodium (Protonix) 40 Mg Tablet.dr, 40 MG PO DAILY Prescribed by: KARINA CLEMENS on 12/30/22 1602 Discontinued Medications Acetaminophen (Tylenol Extra Strength) 500 Mg Tablet, 1,000 MG PO Q8H PRN for PAIN-MILD (1-4), (Reported) Discontinued Reason: No Longer Taking Entered as Reported by: MOY MOSER on 12/30/22 0933 Bismuth Subsalicylate (Pepto-Bismol) 525 Mg/15 Ml Oral.susp, 30 ML PO Q6H PRN for INDIGESTION, (Reported) Discontinued Reason: No Longer Taking Entered as Reported by: MOY MOSER on 12/30/22952 Calcium Carbonate (Tums Ultra) 400 Mg Calcium (1000 Mg) Tab.chew, 400-800 MG PO Q8H PRN for INDIGESTION, (Reported) Discontinued Reason: No Longer Taking Entered as Reported by: MOY OMSER on 12/30/22952 Review of Systems Constitutional: No chills, No diaphoresis, No fever, No malaise, No weakness EENTM: blurred vision; No double vision, No nose pain, No throat pain, No throat swelling Respiratory: No cough, No dyspnea on exertion Cardiovascular: No chest pain Gastrointestinal: No abdominal pain, No constipation, No diarrhea, No nausea, No vomiting Genitourinary: No decreased output, No discharge, No dysuria, No frequency Musculoskeletal: No back pain, No joint pain Skin: No change in color, No change in hair/nails Psychiatric/Neurological: Weakness (lower ext bilateral) All Other Systems Reviewed Negative Unless Noted: Yes Past Tbegljj-Cbnxpa-Mtoksi Hx Patient Social History Tobacco Use?: Yes Tobacco type used: Cigarettes Smoking Status: Current Everyday Smoker Substance type: Marijuana Substance frequency: Daily Alcohol Use?: No Pt feels they are or have been: No Immunizations Up To Date Tetanus Booster (TDap): Unknown PED Vaccines UTD: No Seasonal Allergies Seasonal Allergies: No Past Medical History Surgery/Hospitalization HX: GERD Surgeries: No Respiratory: No Cardiac: No Neurological: No Genitourinary: No Gastrointestinal: Yes Ulcer Musculoskeletal: No Endocrine: No HEENT: No Cancer: No Psychosocial: No Integumentary: No Blood Disorders: No Adverse Reaction/Blood Tranf: No Family Medical History Heart Disease, Diabetes Physical Exam Vital Signs Vital Signs - First Documented 01/15/23 16:35 Temp 36.3 Pulse 78 Resp 18 B/P (MAP) 145/88 (107) Pulse Ox 98 Capillary Refill : Less Than 3 Seconds Height, Weight, BMI Height: 6'2" Weight: 214lbs. oz. 97.128159wf; 25.00 BMI Method:Stated General Appearance: No Apparent Distress, WD/WN HEENT: PERRL/EOMI, TMs Normal, Normal ENT Inspection, Pharynx Normal Neck: Full Range of Motion, Normal Inspection, Non Tender Cardiovascular: Regular Rate, Rhythm, No Edema, No Gallop, No JVD Respiratory: Chest Non Tender, Lungs Clear, Normal Breath Sounds, No Accessory Muscle Use, No Respiratory Distress Gastrointestinal: Normal Bowel Sounds, No Organomegaly, No Pulsatile Mass, Non Tender Back: Normal Inspection, No CVA Tenderness, No Vertebral Tenderness Extremities: Normal Capillary Refill, Non Tender Neurologic/Psychiatric: Alert, Oriented x3, central office associate II-XII Norm as Tested Coordination/Gait: ABN Nose to Finger (L), ABN Nose to Finger (R), Weak Motor Strength LLE, Weak Motor Strength RLE Progress/Results/Core Measures Results/Orders Lab Results Laboratory Tests Test 01/15/23 16:40 01/15/23 17:04 01/15/23 17:05 01/15/23 17:46 Range/Units White Blood Count 8.7 4.3-11.0 10^3/uL Red Blood Count 5.25 4.30-5.52 10^6/uL Hemoglobin 15.0 13.3-17.7 g/dL Hematocrit 45 40-54 % Mean Corpuscular Volume 85 80-99 fL Mean Corpuscular Hemoglobin 29 25-34 pg Mean Corpuscular Hemoglobin Concent 34 32-36 g/dL Red Cell Distribution Width 14.0 10.0-14.5 % Platelet Count 297 130-400 10^3/uL Mean Platelet Volume 9.8 9.0-12.2 fL Immature Granulocyte % (Auto) 0 % Neutrophils (%) (Auto) 57 42-75 % Lymphocytes (%) (Auto) 31 12-44 % Monocytes (%) (Auto) 9 0-12 % Eosinophils (%) (Auto) 2 0-10 % Basophils (%) (Auto) 1 0-10 % Neutrophils # (Auto) 5.0 1.8-7.8 10^3/uL Lymphocytes # (Auto) 2.7 1.0-4.0 10^3/uL Monocytes # (Auto) 0.8 0.0-1.0 10^3/uL Eosinophils # (Auto) 0.1 0.0-0.3 10^3/uL Basophils # (Auto) 0.1 0.0-0.1 10^3/uL Immature Granulocyte # (Auto) 0.0 0.0-0.1 10^3/uL Sodium Level 140 135-145 MMOL/L Potassium Level 4.0 3.6-5.0 MMOL/L Chloride Level 108 H 98-107 MMOL/L Carbon Dioxide Level 22 21-32 MMOL/L Anion Gap 10 5-14 MMOL/L Blood Urea Nitrogen 18 7-18 MG/DL Creatinine 1.04 0.60-1.30 MG/DL Estimat Glomerular Filtration Rate 92 BUN/Creatinine Ratio 17 Glucose Level 107 H 70-105 MG/DL Calcium Level 9.3 8.5-10.1 MG/DL Corrected Calcium 9.1 8.5-10.1 MG/DL Total Bilirubin 0.6 0.1-1.0 MG/DL Aspartate Amino Transf (AST/SGOT) 21 5-34 U/L Alanine Aminotransferase (ALT/SGPT) 25 0-55 U/L Alkaline Phosphatase 54 40-136 U/L Troponin I < 0.028 <0.028 NG/ML Total Protein 7.4 6.4-8.2 GM/DL Albumin 4.3 3.2-4.5 GM/DL Glucometer 101 70-110 MG/DL Prothrombin Time 14.1 12.2-14.7 SEC INR Comment 1.1 0.8-1.4 Activated Partial Thromboplast Time 27 24-35 SEC D-Dimer 0.33 0.00-0.49 UG/ML Urine Color YELLOW Urine Clarity CLEAR Urine pH 6.5 5-9 Urine Specific [place] 1.020 1.016-1.022 Urine Protein TRACE H NEGATIVE Urine Glucose (UA) NEGATIVE NEGATIVE Urine Ketones NEGATIVE NEGATIVE Urine Nitrite NEGATIVE NEGATIVE Urine Bilirubin NEGATIVE NEGATIVE Urine Urobilinogen 4.0 < = 1.0 MG/DL Urine Leukocyte Esterase NEGATIVE NEGATIVE Urine RBC (Auto) 1+ H NEGATIVE Urine RBC NONE /HPF Urine WBC NONE /HPF Urine Crystals NONE /LPF Urine Bacteria TRACE /HPF Urine Casts NONE /LPF Urine Mucus SMALL H /LPF Urine Culture Indicated NO Urine Opiates Screen NEGATIVE NEGATIVE Urine Oxycodone Screen NEGATIVE NEGATIVE Urine Methadone Screen NEGATIVE NEGATIVE Urine Propoxyphene Screen NEGATIVE NEGATIVE Urine Barbiturates Screen NEGATIVE NEGATIVE Ur Tricyclic Antidepressants Screen NEGATIVE NEGATIVE Urine Phencyclidine Screen NEGATIVE NEGATIVE Urine Amphetamines Screen POSITIVE H NEGATIVE Urine Methamphetamines Screen POSITIVE H NEGATIVE Urine Benzodiazepines Screen NEGATIVE NEGATIVE Urine Cocaine Screen NEGATIVE NEGATIVE Urine Cannabinoids Screen POSITIVE H NEGATIVE My Orders Orders - MELANIE CASTANO Cbc With Automated Diff (01/15/23 16:49) Protime With Inr (01/15/23 16:49) Partial Thromboplastin Time (01/15/23 16:49) Comprehensive Metabolic Panel (01/15/23 16:49) Fibrin Degradation Products (01/15/23 16:49) Troponin I [place] (01/15/23 16:49) Ua Culture If Indicated (01/15/23 16:49) Chest 1 View, Ap/Pa Only (01/15/23 16:49) Ekg Tracing (01/15/23 16:49) Nothing By Mouth (01/15/23 Dinner) Accucheck Stat ONCE (01/15/23 16:49) Ed Iv/Invasive Line Start (01/15/23 16:49) Vital Signs Stroke Patient Q15M (01/15/23 16:49) Ct Head Wo-R/O Stroke (01/15/23 16:49) O2 (01/15/23 16:49) Monitor-Rhythm Ecg Trace Only (01/15/23 16:49) Dysphagia Screening Tool [id number] (01/15/23 16:49) Lipid Panel (01/16/23 06:00) Ct Angio Head/Neck (01/15/23 17:41) Iohexol Injection (Omnipaque 350 Mg/Ml 1 (01/15/23 18:00) Received Contrast (Hold Metformin- Contr (01/15/23 18:00) Ns (Ivpb) (Sodium Chloride 0.9% Ivpb Bag (01/15/23 18:00) Drug Screen Stat (Urine) (01/15/23 18:29) Medications Given in ED Current Medications Medications Dose Ordered Sig/Gail Route Start Time Stop Time Status Last Admin Dose Admin Iohexol 75 ml ONCE ONCE IV 01/15/23 18:00 01/15/23 18:01 DC 01/15/23 18:16 75 ML Sodium Chloride 100 ml ONCE ONCE IV 01/15/23 18:00 01/15/23 18:01 DC 01/15/23 18:16 100 ML Vital Signs/I&O 01/15/23 16:35 Temp 36.3 Pulse 78 Resp 18 B/P (MAP) 145/88 (107) Pulse Ox 98 Blood Pressure Mean: 107 Comment Sinus rhythm, ST elevation probable normal early repolarization pattern, 60 bpm, QRS duration 94 MS, QTc 414 MS. Departure Impression Primary Impression: Syncope Disposition: HOME, SELF-CARE Condition: Stable Departure-Patient Inst. Decision time for Depature: 18:51 [facility]Family[facility] Primary Care Physician Patient Instructions: Syncope (Fainting) (DC) Add. Discharge Instructions: Recommend rest staying hydrated for the next 2 days. Follow-up your PCP in 2 to 3 days for reevaluation. If any worsening symptoms return back to ED All discharge instructions reviewed with patient and/or family. Voiced underst anding. Work/School Note: Work Release Form Date Seen in the Emergency Department: J 2022 Return to Work: Jan 18, 2023 MELANIE CASTANO Jan 15, 2023 16:56
[2023-01-15 16:58] LABS: ALBUMIN 4.3 GM/DL (3.2-4.5); CHLORIDE 108 MMOL/L (98-107); SODIUM 140 MMOL/L (135-145)
[2023-01-15 16:59] LABS: CALCIUM 9.3 MG/DL (8.5-10.1)
[2023-01-15 17:01] LABS: GLUCOSE 107 MG/DL (70-105); TOTAL PROTEIN 7.4 GM/DL (6.4-8.2)
[2023-01-15 17:02] LABS: CARBON DIOXIDE 22 MMOL/L (21-32)
[2023-01-15 17:03] LABS: BILIRUBIN,TOTAL 0.6 MG/DL (0.1-1.0)
[2023-01-15 17:04] LABS: ALKALINE PHOSPHATASE 54 U/L (40-136); CREATININE SERUM 1.04 MG/DL (0.60-1.30); GFR ESTIMATED 92
[2023-01-15 17:05] LABS: BUN/CREATININE RATIO 17
[2023-01-15 17:07] LABS: ALANINE AMINOTRANSFERASE 25 U/L (0-55)
[2023-01-15 17:21] LABS: INR 1.1 (0.8-1.4); PROTHROMBIN TIME PATIENT 14.1 SEC (12.2-14.7)
[2023-01-15 17:24] LABS: FIBRIN DEGRADATION PRODUCTS 0.33 UG/ML (0.00-0.49)
--- NOTE | 2023-01-15 17:36 | Diagnostic Imaging Report ---
INDICATION: Visual changes. No prior examination available for comparison. FINDINGS: The heart size, mediastinal configuration, and pulmonary vascularity are within normal limits. There is no pleural effusion, pneumothorax, or pneumonia. The osseous structures are unremarkable. IMPRESSION: No acute cardiopulmonary abnormality. Dictated by: Dictated on workstation # [id number]
--- NOTE | 2023-01-15 17:40 | Diagnostic Imaging Report ---
PROCEDURE: CT head wo r/o stroke. TECHNIQUE: Multiple contiguous axial images were obtained through the brain without the use of intravenous contrast. Auto Exposure Controls were utilized during the CT exam to meet ALARA standards for radiation dose reduction. INDICATION: Neurologic deficit. FINDINGS: The ventricles and sulci are within normal limits. There is no hydrocephalus or cerebral edema. There is no midline shift or mass effect. There is no intracranial mass, hemorrhage, or extra-axial fluid collection. The visualized paranasal sinuses and mastoid air cells are clear. There are no regional areas of decreased attenuation appreciated to suggest an acute CVA. IMPRESSION: No acute intracranial abnormality. Dictated by: Dictated on workstation # [id number]
[2023-01-15 17:53] LABS: BILIRUBIN,URINE NEGATIVE (NEGATIVE); CLARITY,URINE CLEAR; COLOR,URINE YELLOW; GLUCOSE, URINE (UA) NEGATIVE (NEGATIVE); KETONES,URINE NEGATIVE (NEGATIVE); LEUKOCYTE ESTERASE ,URINE NEGATIVE (NEGATIVE); NITRITE,URINE NEGATIVE (NEGATIVE); PH,URINE 6.5 (5-9); PROTEIN,URINE TRACE (NEGATIVE)
[2023-01-15] MEDS ORDERED: IOHEXOL 350 MG/ML 100 ML (OMNIPAQUE 350) VIAL IV ONE (18:00)
[2023-01-15] MEDS ORDERED: HOLD METFORMIN - RECEIVED CONTRAST 20 ML VIAL IV SCH (18:00)
[2023-01-15] MEDS ORDERED: NS 100 ML (IVPB) BAG IV ONE (18:00)
[2023-01-15 18:01] LABS: BACTERIA,URINE TRACE /HPF
--- NOTE | 2023-01-15 18:32 | Diagnostic Imaging Report ---
PROCEDURE: CT angiography of the head and CT angiography of the neck with and without contrast. TECHNIQUE: Contiguous noncontrast images were obtained from the skull base through the vertex. After intravenous contrast administration, helical CT angiography of the neck was performed. Source data was reformatted into 3D MIP projections. Delayed post contrast acquisition was also obtained. Auto Exposure Controls were utilized during the CT exam to meet ALARA standards for radiation dose reduction. INDICATION: Weakness and syncope. COMPARISON: Prior examination from 01/15/2023. FINDINGS: The ventricles and sulci are within normal limits. There is no hydrocephalus. There is no midline shift. There is no mass, hemorrhage or extra-axial fluid collection. There is no hydrocephalus. There is no midline shift. There is no mass, hemorrhage or extra-axial fluid collection. There is no proximal intracranial branch occlusion, vascular malformation or aneurysm. The sinuses and mastoid air cells are clear. The nasopharyngeal, oropharyngeal and hypopharyngeal tissues are symmetrical without mass effect. The parotid, submandibular and thyroid glands are normal in appearance. The lung apices are clear. The common carotid arteries, internal carotid arteries and vertebral arteries are widely patent. There is no dissection, stenosis or occlusion. The alignment of the cervical spine is normal. The prevertebral soft tissues are within normal limits. is normal. IMPRESSION: Unremarkable CTA head and neck. Dictated by: Dictated on workstation # [id number]
[2023-01-15 18:48] LABS: AMPHETAMINE SCREEN, URINE POSITIVE (NEGATIVE); BARBITURATE SCREEN URINE NEGATIVE (NEGATIVE); BENZODIAZEPINES SCREEN URINE NEGATIVE (NEGATIVE); CANNABINOID SCREEN, URINE POSITIVE (NEGATIVE); COCAINE SCREEN URINE NEGATIVE (NEGATIVE); METHADONE STAT NEGATIVE (NEGATIVE); OPIATE SCREEN URINE NEGATIVE (NEGATIVE); OXYCODONE STAT NEGATIVE (NEGATIVE); PROPOXYPHENE STAT NEGATIVE (NEGATIVE); TRICYCLIC ANTIDEPRESSANTS SCRE NEGATIVE (NEGATIVE)
[2023-01-15 18:54] VITALS: BP 132/87
== END 2023-01-15 18:57 | disposition home or self-care (01) ==
LOC: EDUNIT# 16:26 → ER 16:28
DX: R55 Syncope and collapse (principal); F17.210 Nicotine dependence, cigarettes, uncomplicated
CPT/HCPCS: 36415; 70450; 70496; 70498; 71045; 80053; 80306; 81000; 82947; 84484; 85025; 85379; 85610; 85730; 93005

== ENCOUNTER 2023-01-25 08:53 | Day surgery (SDC) | payer OTHER ==
[~2023-01-25] VITALS: Ht 188 cm; Wt 88.0 kg
[2023-01-25] MEDS ORDERED: LACTATED RINGERS 1,000 ML IV STA (08:54)
[2023-01-25] MEDS ORDERED: HURRICAINE EXT TUBE (BENZOCAINE) XX PRN (09:00)
[2023-01-25 09:08] VITALS: BP 122/83
[2023-01-25] MEDS ORDERED: MIDAZOLAM 2 MG/2 ML (VERSED) VIAL ONE (09:10)
[2023-01-25] MEDS ORDERED: PROPOFOL INJECTION 50 ML IV ONE (09:10)
--- NOTE | 2023-01-25 09:47 | Progress Note-Pre Operative ---
Pre-Operative Progress Note Date of Available H&P: Jan 12, 2023 Date H&P Reviewed: Jan 25, 2023 Time H&P Reviewed: 09:30 History & Physical: H&P Reviewed, Patient Examed, No changes noted Pre-Operative Diagnosis: Hematemesis AFSHIN CORNEJO DO Jan 25, 2023 09:47
[2023-01-25 09:50] VITALS: BP 107/60
[2023-01-25] MEDS ORDERED: SUCR1TAB36 PO (09:50)
--- NOTE | 2023-01-25 09:50 | Progress Note-Post Operative ---
Post-Operative Progess Note Surgeon (s)/Single Resource Boss (s) Surgeon AFSHIN CORNEJO DO Single Resource Boss: none Pre-Operative Diagnosis Hematemesis Post-Operative Diagnosis Severe Esophagitis Guillermo's Esophagus Hiatal Hernia Gastritis Procedure & Operative Findings Date of Procedure 01/25/23 Procedure Performed/Findings EGD with biopsy PROCEDURE NOTE: After informed consent was obtained, the patient was brought to the endoscopy suite, placed in bed in left lateral decubitus position. He was administered IV sedation by the CUTTER OPERATOR HELPER who then monitored vitals the entire time, heart rate, blood pressure and pulse ox and the scope was inserted down the mouth through the esophagus into the stomach. On the way down, noted severe esophagitis, took a picture, pushed into the stomach and pushed past the antrum into the duodenum. Duodenum looked good. Pulled back and did a biopsy of antrum, then retroflexed the scope, saw small hiatal hernia, took a picture of this and then pulled the scope into the GE junction, took another picture of the hiatal hernia and then did a biopsy of the GE junction. I then did a few more biopsies in the distal esophagus of the severely inflamed area. Pushed the scope back into the stomach, suctioned all the air out of the stomach. At this point pulled the scope up the esophagus and out the mouth. The patient tolerated the procedure, and he recovered in endoscopy suite. Anesthesia Type IV sedation by CUTTER OPERATOR HELPER Estimated Blood Loss Estimated blood loss (mL): scant Specimens/Packing Specimens Removed antral bx GE jxn bx Esophageal bx x 3 AFSHIN CORNEJO DO Jan 25, 2023 09:50
--- NOTE | 2023-01-25 09:51 | Endoscopy Discharge Instruct ---
Endo Procedure/Findings Findings 1.: Gastritis 2.: Guillermo's Esophagus 3.: Other Findings (severe esophagitis) 4.: Hiatal Hernia Discharge Instructions - Activity: You might feel a little sleepy until tomorrow. This is due to the medicine you received to relax you. Until tomorrow, you should: NOT drive a car, operate machinery or power tools. NOT drink any alcoholic beverages. NOT make any important decisions or sign importortant papers. Do not return to work until tomorrow, unless otherwise instructed. Resume previous activities tomorrow. Diet: Start by taking liquids. If you tolerate liquids, advance to solid food. 1.: EGD in 6-8 weeks Notify Physician - If you experience excessive bleeding, unusual abdominal pain, fever, or chest pain, contact your doctor immediately. Follow-Up: Other Follow up in my office in one week AFSHIN CORNEJO DO Jan 25, 2023 09:51
[2023-01-25 09:55] VITALS: BP 109/69
[2023-01-25 10:05] VITALS: BP 111/73
[2023-01-25 10:25] VITALS: BP 116/69
--- NOTE | 2023-01-25 10:33 | Anesthesia-General Post-Op ---
MAC Patient Condition Mental Status/LOC: Same as Preop Cardiovascular: Satisfactory Nausea/Vomiting: Absent Respiratory: Satisfactory Pain: Controlled Complications: Absent Post Op Complications Complications None Follow Up Care/Instructions Patient Instructions None needed. Anesthesiology Discharge Order Discharge Order Patient is doing well, no complaints, stable vital signs, no apparent adverse anesthesia problems. No complications reported per nursing. CHARITY BLOUNT CRNA Jan 25, 2023 10:33
== END 2023-01-25 10:30 | disposition home or self-care (01) ==
LOC: ENDO 08:53
PROVIDERS: ATTEND Surgery
DX: K22.70 Barrett's esophagus without dysplasia (principal); K44.9 Diaphragmatic hernia without obstruction or gangrene; K29.70 Gastritis, unspecified, without bleeding; K21.00 Gastro-esophageal reflux disease with esophagitis, without bleeding; F17.210 Nicotine dependence, cigarettes, uncomplicated; Z86.010 Personal history of colon polyps